=== PATIENT | male | born 1965 | race Caucasian/White ===

== ENCOUNTER 2019-07-05 10:26 | Day surgery (SDC) | payer BC ==
[~2019-07-05] VITALS: Ht 175.3 cm; Wt 114.0 kg
[2019-07-05] MEDS ORDERED: RAMI5 PO (10:39)
[2019-07-05] MEDS ORDERED: ZOCOR20 MG PO (10:40)
[2019-07-05] MEDS ORDERED: NAPR500 PO (10:40)
[2019-07-05] MEDS ORDERED: ASPI325 PO (10:40)
[2019-07-05] MEDS ORDERED: HYDCHL25 PO (10:41)
--- NOTE | 2019-07-05 12:09 | NUR ---
07/05/19 1209 Marko Arias 1 MG EPI ADDED TO FIRST LACTATED RINGER PER DR. JONES.
--- NOTE | 2019-07-05 13:19 | NUR ---
07/05/19 1319 Dipti Bhakta LATE ENTRY ASSUMED CARE OF PATIENT FROM [facility]LE. PATIENT STATES THAT HE HAS MINIMAL PAIN AND THAT IT IS TOLERABLE. TOLERATING PO FLUIDS/FOOD. AT SIDE. VSS. WILL CONTINUE TO MONITOR.
== END 2019-07-05 13:05 | disposition home or self-care (01) ==
LOC: ORSCSDS 10:26
PROVIDERS: Orthopaedic Surgery
PROC: 0SBD4ZZ Excision of Left Knee Joint, Percutaneous Endoscopic Approach (ICD-10-PCS; principal; 2019-07-05 13:00)
DX: S83.282A Other tear of lateral meniscus, current injury, left knee, initial encounter (principal); M17.12 Unilateral primary osteoarthritis, left knee; I10 Essential (primary) hypertension; G47.33 Obstructive sleep apnea (adult) (pediatric); E66.01 Morbid (severe) obesity due to excess calories; Z68.36 Body mass index [BMI] 36.0-36.9, adult; K21.9 Gastro-esophageal reflux disease without esophagitis; Z79.82 Long term (current) use of aspirin; Z79.899 Other long term (current) drug therapy
CPT/HCPCS: J0171; J0690; J1100; J2250; J2405; J2704; J3010; J7120

== ENCOUNTER 2023-12-24 18:09 | Observation (INO) | payer OTHER ==
[~2023-12-24] VITALS: Ht 175.3 cm; Wt 112.7 kg
[~2023-12-24 18:09] MED LIST: ASPI325 PO; HYDCHL25 PO; NAPR500 PO; RAMI5 PO; ZOCOR20 MG PO
[2023-12-24 18:25] LABS: BASOPHILS PERCENT AUTO 1 % (0-2); EOSINOPHILS ABSOLUTE AUTO 0.29 K/mm3 (0.00-0.68); EOSINOPHILS PERCENT AUTO 2 % (0-6); Hematocrit 42.3 % (37.0-53.0); Hemoglobin 15.3 g/dL (13.5-17.5); IMMATURE GRAN ABSOLUTE AUTO 0.05 K/mm3 (0.00-0.10); IMMATURE GRAN PERCENT AUTO 0 % (0-1); LYMPHOCYTES ABSOLUTE AUTO 4.27 K/mm3 (0.84-5.20); LYMPHOCYTES PERCENT AUTO 36 % (21-46); MONOCYTES ABSOLUTE AUTO 0.91 K/mm3 (0.16-1.47); MONOCYTES PERCENT AUTO 8 % (4-13); Mean Corpuscular HGB 31.4 pg (26.0-34.0); Mean Corpuscular HGB Conc 36.2 g/dL (31.5-36.5); Mean Corpuscular Volume 87 fL (80-100); Mean Platelet Volume 9.3 fL (9.1-12.4); NEUTROPHILS ABSOLUTE AUTO 6.36 K/mm3 (1.96-9.15); NEUTROPHILS PERCENT AUTO 53 % (41-73); Platelet Count 285 K/mm3 (150-400); RDW Coefficient Variation 12.2 % (11.7-14.2); RDW Standard Deviation 38.9 fL (35.1-46.3); Red Blood Cell Count 4.88 M/mm3 (4.30-5.90); White Blood Cell Count 11.98 K/mm3 (4.00-11.30)
[2023-12-24] MEDS ORDERED: CYCL10 PO (18:33)
[2023-12-24 18:51] LABS: Albumin/Globulin Ratio 1.2 (0.8-1.8); Bilirubin, Total 0.6 mg/dL (0.1-1.0); Bun/Creatinine Ratio 20.3 (12.0-20.0); Calcium, Blood 8.7 mg/dL (8.5-10.1); Creatinine, Blood 0.94 mg/dL (0.60-1.20); Globulin, Blood 3.3 g/dL (2.2-4.0); Potassium, Blood 3.4 mmol/L (3.5-5.5); Total Protein, Blood 7.3 g/dL (6.4-8.2)
[2023-12-24] MEDS ORDERED: Acetaminophen 500 MG Tab PO PRN (19:50)
[2023-12-24] MEDS ORDERED: OxyCODONE HCL 5 MG TAB PO PRN (19:50)
[2023-12-24] MEDS ORDERED: Methocarbamol 500 MG Tab PO PRN (19:55)
[2023-12-24] MEDS ORDERED: HYDROcodone 5-APAP 325 TAB PO PRN (21:15)
[2023-12-24] MEDS ORDERED: Ondansetron HCl 2 MG / ML 2ML Vial IV PRN (21:15)
[2023-12-24] MEDS ORDERED: HYDROmorphone HCl/Pf 1MG SYR IV PRN (21:15)
[2023-12-24 22:36] VITALS: BP 143/91
--- NOTE | 2023-12-25 04:53 | NUR ---
PHYSICS DEPARTMENT CHAIR NOTE PATIENT IS A&OX4, VITAL SLIGHTLY ELEVATED. LAST BP 143/91, PULSE 74, ON ROOM AIR, NOT ON TELE. COMPLAIND OF PAIN TO RIGHT SHOULDER AND RIBS 10 OUT OF 10, DILAUDID GIVEN FOR PAIN. PATIENT WALKES INDEPENDENTLY IN ROOM BUT HAS VERY LIMITED ROM TO THE RIGHT SHOULDER AND NEEDS HELP WITH SITTING UP IN BED BEFORE GETTING OUT OF BED. PATIENT CALLS APPROPRIATELY AND IS COOPERATIVE WITH CARES.
[2023-12-25 05:07] VITALS: BP 118/71
[2023-12-25 07:14] VITALS: BP 122/77
[2023-12-25] MEDS ORDERED: Ketorolac Tromethamine 30mg Vial IV ONE (13:20)
--- NOTE | 2023-12-25 15:07 | NUR ---
SHIFT SUMMARY AND DISCHARGE PATIENT ALERT AND INTERACTIVE. PATIENT INDEPENDENT IN THE ROOM AND WALKING THE HALLS. PATIENT CONTINUES TO HAVE PAIN BUT BETTER CONTROLLED AFTER TORADOL. CXR DONE. EDUCATION PROVIDED ON IMPORTANCE OF SPLINTING WITH COUGHING AND DEEP BREATHING. EDUCATED ON THE IMPORTANCE OF COUGHING AND DEEP BREATHIING TO PREVENT PNEUMONIA. EDUCATED RELATED TO PAIN CONTROL, MEDICATIONS, AND RISK FOR CONSTIPATION. DISCHARGE ORDERS PLACED. DISCHARGE ORDERS REVIEWED WITH PATIENT AND . IV DC'D, BELONGINGS SENT HOME WITH PATIENT. RX FOR OXY SENT WITH PATIENT. PATIENT TRANSPORTED OUT VIA WHEELCHAIR BY CAREER DEVELOPMENT CONSULTANT.
== END 2023-12-25 15:03 | disposition home or self-care (01) ==
LOC: ER 18:09 → MEDS 18:10
PROVIDERS: Emergency Medicine; ADMIT Surgery
DX: S22.41XA Multiple fractures of ribs, right side, initial encounter for closed fracture (principal); S27.0XXA Traumatic pneumothorax, initial encounter; V28.49XA Other motorcycle driver injured in noncollision transport accident in traffic accident, initial encounter; I10 Essential (primary) hypertension; Z79.82 Long term (current) use of aspirin; Z79.899 Other long term (current) drug therapy
CPT/HCPCS: 70450; 71046; 71101; 71260; 72125; 73030; 73070; 73502; 80053; 85025; 93005; 93010; 99285-25; A9270; G0378; J1170; J1885; J2405; Q9967

== ENCOUNTER 2024-11-29 12:44 | Emergency (ER) | payer OTHER ==
[~2024-11-29] VITALS: Ht 177.8 cm; Wt 113.4 kg
[~2024-11-29 12:44] MED LIST changes: +CYCL10 PO
[2024-11-29] MEDS ORDERED: NAPR500 PO (13:10)
[2024-11-29] MEDS ORDERED: METF500 PO (13:10)
[2024-11-29] MEDS ORDERED: Ketorolac Tromethamine 15mg Vial IV ONE (13:20)
[2024-11-29] MEDS ORDERED: FentaNYL Citrate 50 MCG/ML 2 ML Injection IV ONE (14:25)
[2024-11-29] MEDS ORDERED: Diphth,Pertuss(Acell),Tet Vac 0.5 ML VIAL IM ONE (15:50)
[2024-11-29] MEDS ORDERED: ONDA4ODT MM ×2 (17:18→18:07)
[2024-11-29] MEDS ORDERED: Percocet 5-3251 EACH PO ×2 (17:18→18:07)
[2024-11-29] MEDS ORDERED: IBUP800 PO ×2 (17:18→18:07)
[2024-11-29] MEDS ORDERED: RX Prepack 2 Tabs Ondansetron ODT 4MG UD ONE (18:05)
[2024-11-29] MEDS ORDERED: RX Prepack 2 Sprays Naloxone HCL 4 MG/SPRAY UD ONE (18:05)
[2024-11-29] MEDS ORDERED: RX Prepack 6 Tabs Oxycodone 5mg UD ONE (18:05)
[2024-11-29 18:19] VITALS: BP 133/73
== END 2024-11-29 18:19 | disposition home or self-care (01) ==
LOC: ER 12:44
DX: S82.145A Nondisplaced bicondylar fracture of left tibia, initial encounter for closed fracture (principal); V28.49XA Other motorcycle driver injured in noncollision transport accident in traffic accident, initial encounter; Z79.84 Long term (current) use of oral hypoglycemic drugs; Z79.82 Long term (current) use of aspirin; Z79.899 Other long term (current) drug therapy
CPT/HCPCS: 73562-LT; 73700; 76377; 90471; 90715; 96374; 96375; 99284-25; A9270; J1885; J3010